=== PATIENT | female | born 1985 | race Caucasian/White ===

== ENCOUNTER 2024-03-27 07:30 | Day surgery (SDC) | payer BC ==
[2024-03-27] MEDS ORDERED: fentaNYL 250 MCG/5 ML SDV ONE ×2 (08:04→09:45)
[2024-03-27] MEDS ORDERED: Rocuronium 50 MG/5 ML Vial ONE (08:05)
[2024-03-27] MEDS ORDERED: Glycopyrrolate 0.2 MG/ML 5 ML MDV ONE (08:05)
[2024-03-27] MEDS ORDERED: Propofol 200 MG/20 ML SDV ONE (08:05)
[2024-03-27] MEDS ORDERED: Ondansetron 4 MG/2 ML SDV ONE (08:05)
[2024-03-27] MEDS ORDERED: Neostigmine Methylsulfate 10 MG/10 ML MDV ONE (08:05)
[2024-03-27] MEDS ORDERED: Dexamethasone 4 MG/ML SDV ONE (08:05)
[2024-03-27] MEDS: Acetaminophen 500 MG Tab PO ONE (08:06)
[2024-03-27] MEDS: Dextrose 5%-Lactated Ringers 1,000 ML IV SCH (08:37)
[2024-03-27 08:45] LABS: HEMATOCRIT 36.9 % (34.3-46.0); HEMOGLOBIN 12.1 g/dL (11.2-15.5); MEAN CORPUSCULAR HEMOGLOBIN 26.9 pg (31.6-35.5); MEAN CORPUSCULAR HGB CONC 32.8 g/dL (31.6-35.5); RED BLOOD CELL COUNT 4.5 M/uL (3.77-5.24); WHITE BLOOD CELL COUNT,WBC 7.6 K/uL (3.2-11.0)
[2024-03-27 09:05] LABS: A/G RATIO 1.1 (1.2-2.2); ALANINE AMINOTRANSFERASE,ALT 23 U/L (12-78); ALBUMIN 3.8 g/dL (3.4-5.0); ALKALINE PHOSPHATASE 66 U/L (46-116); ANION GAP 7.8 mmol/L (5.0-14.0); ASPARTATE AMNIOTRANSFERASE,AST 17 U/L (15-37); BILIRUBIN TOTAL 0.4 mg/dL (0.2-1.0); BLOOD UREA NITROGEN,BUN 13 mg/dL (7-18); CALCIUM 8.3 mg/dL (8.5-10.1); CARBON DIOXIDE,CO2 29 mmol/L (21-32); CHLORIDE,CL 104 mmol/L (100-108); ESTIMATED GFR 74 mL/min (>60); GLUCOSE RANDOM 102 mg/dL (74-106); POTASSIUM,K 4.1 mmol/L (3.6-5.2); PROTEIN TOTAL,TP 7.2 g/dL (6.4-8.2); SODIUM,NA 141 mmol/L (140-148)
[2024-03-27] MEDS: ceFAZolin 2 GM in Premix Bag 1 BAG IV ONE (09:05)
[2024-03-27] MEDS: Bupivacaine 0.25%/EPINEPHrine 1:200,000 30 ML SDV ONE (10:00)
[2024-03-27] MEDS ORDERED: Ketorolac 30 MG/ML SDV ONE (10:33)
[2024-03-27] MEDS: Ondansetron 4 MG/2 ML SDV IVPUSH PRN (11:44)
[2024-03-27] MEDS: Acetaminophen/HYDROcodone 325-5 MG Tab PO PRN (12:55)
== END 2024-03-27 13:47 | disposition home or self-care (01) ==
LOC: JP.SDS 07:30
PROVIDERS: ATTEND Surgery
DX: K43.9 Ventral hernia without obstruction or gangrene (principal); F41.9 Anxiety disorder, unspecified
CPT/HCPCS: 36415; 49591; 80053; 85027; A9270; C1781; J0690; J1100; J1596; J1885; J2405; J2704; J2710; J3010; J7121; J3490